=== PATIENT | male | born 1960 | race Caucasian/White ===

== ENCOUNTER → 2022-05-01 10:22 | Outpatient (CLI) | payer MEDICARE, SELFPAY | PROVIDERS: PCP Family Medicine; Visit Provider Internal Medicine | DX: Z01.812 Encounter for preprocedural laboratory examination (principal); Z20.822 Contact with and (suspected) exposure to COVID-19; Z12.11 Encounter for screening for malignant neoplasm of colon | CPT/HCPCS: C9803; U0003; U0005 ==

== ENCOUNTER 2022-05-02 08:53 | Day surgery (SDC) | payer MEDICARE, SELFPAY ==
[2022-04-27 10:25] VITALS: BMI 32.6
[2022-05-02 09:21] VITALS: BP 131/82; PULSE 92; RESP 18; TEMP 37.1; O2SAT 97
[2022-05-02 09:44] VITALS: O2SAT 97
--- NOTE | 2022-05-02 09:44 | P.PN_ITS ---
PFSH PFS Medical History Arthritis Asthma Colonoscopy planned Depression Diabetes type 2, controlled High blood pressure High cholesterol History of COVID-19 Retinitis Surgical History History of colonoscopy Family History Other Adopted Social History Smoking Status: Current every day smoker tobacco type: smokeless tobacco alcohol intake: never substance use type: marijuana current occupational status: disabled Travel in the last 8 weeks: None adopted: Yes marital status: number of children: 2 education level: other caffeine: Yes [facility] Anesthesia Checklist Patient Identification Patient Identification: Arm Band Structural Data Admitted From: Home Planned Operative Procedure/s: colonoscopy Consent for Planned Operative Procedure(s) Verified: Yes Verified Documents: Surgical Consent and History and Physical NPO Status Verified Time NPO: 00:00 Additional verifications Anesthesia Reactions: No Airway Assessment C-Spine Mobility Assessed: Yes TMJ Mobility Assessed: Yes Dentition: Poor Dentition Neurological Assessment Level of Consciousness: Awake and Alert Anesthesia Plan Anesthesia Risk discussed: Yes Anesthesia Plan: Verified ASA Class: III Anesthesia Type: MAC
--- NOTE | 2022-05-02 10:19 | [facility].SCOPE ---
Procedure: Date: 05/02/22 Patient Date of :: 1960 Procedure Performed:: Colonoscopy Indications:: History of polyps Performing Provider:: Riley Tidwell MD Referring Provider:: Sanam Wooten Sedation:: See RN records Procedure:: After placing the patient in the left lateral decubitus position, the colonoscopy was gently inserted into the rectum and under direct visualization advanced to the cecum which was identified by transillumination in the right lower quadrant, identification of the ileocecal valve, appendiceal orifice, and cecal strap. Color, texture, mucosa, and anatomy of the colon were carefully examined with the scope. Findings:: Anal canal: normal Rectum: Internal hemorrhoids Sigmoid colon: Fair to poor bowel preparation Descending colon: Sessile polyp 6 mm in size. Removed with cold snare polypectomy. Fair to poor bowel preparation Splenic flexure: normal Transverse colon: normal without polyps or inflammatory changes Hepatic flexure: Two polyps aproximately 17-18 mm in size. Removed with snare cautery polypectomy. Retrieved with hill net. Sessile polyp 5 mm in size. Removed with cold snare polypectomy. Fair preparation Ascending colon: Fair preparatiojn Cecum: Polyps 4 mm and 8 mm in size. Removed with cold snare polypectomy Terminal ileum: not visualized Recommendations:: Await pathology results Repeat colonoscopy in 6 months with 2 days liquid diet and split dose bowel preparation Complications:: none Estimated blood obtained (mL): 1
[2022-05-02 10:20] VITALS: BP 104/70; PULSE 82; RESP 18; TEMP 36.3; O2SAT 95
[2022-05-02 10:30] VITALS: BP 105/66; PULSE 74; RESP 18; O2SAT 97
[2022-05-02 10:40] VITALS: BP 106/67; PULSE 75; RESP 18; O2SAT 97
[2022-05-02 10:50] VITALS: BP 109/73; PULSE 71; RESP 18; O2SAT 97
[2022-05-04 03:30] LABS: POC Glucose,Bedside 220 (70-110)
== END 2022-05-02 11:03 | disposition home or self-care (01) ==
PROVIDERS: PCP Family Medicine; Visit Provider Internal Medicine
PROC: 0DJD8ZZ Inspection of Lower Intestinal Tract, Via Natural or Artificial Opening Endoscopic (ICD-10-PCS; CPT 45378; principal; 2022-05-02 10:00)
DX: Z12.11 Encounter for screening for malignant neoplasm of colon (principal); Z86.010 Personal history of colon polyps; K63.5 Polyp of colon; Z72.0 Tobacco use; Z79.899 Other long term (current) drug therapy
CPT/HCPCS: 45385; 82962; 88305